=== PATIENT | female | born 1990 | race Caucasian/White ===

== ENCOUNTER 2019-12-07 13:41 | Emergency (ER) | payer OTHER, SELFPAY ==
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
[2019-12-07 13:58] VITALS: BP 128/75; PULSE 113; RESP 16; TEMP 37.4; O2SAT 95
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
== END 2019-12-07 14:45 | disposition home or self-care (01) ==
PROVIDERS: Emergency Provider Nurse Practitioner Family
DX: S53.401A Unspecified sprain of right elbow, initial encounter (principal); Y04.2XXA Assault by strike against or bumped into by another person, initial encounter
CPT/HCPCS: 73080; 99213; G0463

== ENCOUNTER 2020-08-30 11:47 | Emergency (ER) | payer OTHER, SELFPAY ==
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
[2020-08-30 11:48] VITALS: BP 117/59; PULSE 69; RESP 16; TEMP 36.2; O2SAT 100
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
== END 2020-08-30 13:47 | disposition home or self-care (01) ==
PROVIDERS: Emergency Provider Emergency Medicine; PCP Family Medicine
DX: S53.402A Unspecified sprain of left elbow, initial encounter (principal); V49.9XXA Car occupant (driver) (passenger) injured in unspecified traffic accident, initial encounter
CPT/HCPCS: 73080; 99283

== ENCOUNTER 2020-09-09 00:19 | Emergency (ER) | payer OTHER, SELFPAY ==
--- NOTE | ~2020-09-09 | CT_ITS ---
EXAMINATION: CT brain wo con EXAM DATE: 09/09/2020 02:57 INDICATION: Seizure and dizziness. TECHNIQUE: Spiral CT of the head was performed without contrast. Axial, coronal and sagittal images were reviewed. The dose-length product (DLP) for this examination was 605.33 mGy-cm. The exposure w as tailored according to patient size, and iterative reconstruction (ASIR) was used as additional dos e reduction technique. Comparison is made to prior examination from 05/12/2017. FINDINGS: There is no acute intraparenchymal hemorrhage. No evidence of intraparenchymal brain mass lesion. No evidence of acute infarction. There is no mass effect or midline shift. The ventricles are normal in size. There are no extra-axial collections. There are no acute calvarial fractures. T he orbits are unremarkable. Soft tissue is unremarkable. The visualized sinuses and mastoid air colt ls are well aerated. IMPRESSION: 1. Normal head CT examination. Reviewed, dictated and finalized at location A. MOBILE BODY REPAIRER
[2020-09-09 00:21] VITALS: BP 146/74; PULSE 111; RESP 16; TEMP 36.9; O2SAT 100
[2020-09-09 01:12] LABS: Basophils Percent Auto 0.3 % (0.2-1.2); Eosinophils Absolute Auto 0.2 K/mm3 (0-0.3); Eosinophils Percent Auto 1.5 % (0-4.4); Hematocrit 34.5 % (37.0-47.0); Hemoglobin 10.8 g/dL (12.0-15.0); Immature Granulocyte Absolute 0.04 K/mm3 (0.00-0.031); Immature Granulocyte Percent A 0.3 % (0-0.5); Lymphocytes Absolute Auto 2.82 K/mm3 (0.9-3.2); Lymphocytes Percent Auto 20.3 % (18.3-44.2); Mean Corpuscular HGB Conc 31.3 g/dl (32-36); Mean Corpuscular Hemoglobin 24.7 pg (26-34); Mean Corpuscular Volume 78.9 fl (80-100); Mean Platelet Volume 9.9 fl (7.4-10.4); Monocytes Absolute Auto 0.5 K/mm3 (0.1-0.6); Monocytes Percent Auto 3.7 % (2.6-8.5); Neutrophils Absolute Auto 10.3 K/mm3 (1.3-6.7); Neutrophils Percent Auto 73.9 % (45.5-73.1); Platelet Count Result 256 k/mm3 (150-375); Red Blood Count 4.37 M/mm3 (4.2-5.4); White Blood Count 13.9 K/mm3 (4.5-10.0)
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
[2020-09-09 01:30] VITALS: BP 114/71; PULSE 97; RESP 15; O2SAT 98
[2020-09-09 01:31] LABS: Ethanol < 10 mg/dL (<10)
[2020-09-09 01:33] LABS: Alanine Aminotransferase 18 U/L (4-35); Albumin Level 4.3 g/dL (3.5-5.1); Alkaline Phosphatase 77 U/L (38-126); Anion Gap 10 mmol/L (8-16); Aspartate Amino Transferase 24 U/L (14-36); Bilirubin,Total 0.2 mg/dL (0.2-1.3); Blood Urea Nitrogen 7 mg/dL (7-17); Calcium 9.1 mg/dL (8.4-10.2); Carbon Dioxide 25 mmol/L (22-30); Chloride 101 mmol/L (98-107); Estimated CRCL calculation 113 ml/min; Estimated Glomerular Filt Rate > 60; Glucose 154 mg/dL (65-105); Potassium 3.3 mmol/L (3.4-5.0); Sodium 136 mmol/L (137-145)
[2020-09-09 02:09] LABS: Add Urine Microscopic? YES; Appearance Urine Clear (Clear); Bilirubin Urine Negative (Negative); Blood Urine 3+ (Negative); Color Urine Yellow (Yellow); Glucose Urine UA Negative (Negative); Ketones Urine Negative (Negative); Leukocyte Esterase Ur Negative LEU/UL (Negative); Mucus Urine Rare /lpf; Nitrate Urine Negative (Negative); Protein Urine Negative (Negative); Specific Grav Ur 1.011 (1.001-1.035); Squamous Epithelial Cell Urine Occasional /hpf (Few); Urobilinogen Urine Negative mg/dL (<2.0)
[2020-09-09 02:38] LABS: Amphetamine Screen Urine Negative (Negative); Barbiturate Screen Urine Negative (Negative); Benzodiazepines Screen Urine Negative (Negative); Cannabinoid Screen Urine Negative (Negative); Cocaine Screen Urine Negative (Negative); Methadone Screen Urine Negative (Negative); Opiate Screen Urine Negative (Negative); Phencyclidine Screen Urine Negative (Negative)
[2020-09-09 03:00] VITALS: BP 111/71; PULSE 90; RESP 15; O2SAT 99
[2020-09-09 03:29] LABS: Glucose Point of Care 93 (65-105)
[2020-09-09] MEDS: levETIRAcetam 1000MG/NACL100ML 1,000 MG/100 ML BAG 400 MG IVPB (03:51)
[2020-09-09 04:20] VITALS: BP 111/65; PULSE 86; RESP 16; O2SAT 99
== END 2020-09-09 04:25 | disposition home or self-care (01) ==
PROVIDERS: Emergency Provider Emergency Medicine; PCP Family Medicine
DX: R56.9 Unspecified convulsions (principal); Z87.891 Personal history of nicotine dependence
CPT/HCPCS: 36415; 70450; 80053; 80307; 81001; 85025; 96365; 99284; J1953

== ENCOUNTER 2020-10-04 14:03 | Outpatient (CLI) | payer OTHER, SELFPAY ==
--- NOTE | ~2020-10-04 | MR_ITS ---
EXAMINATION: MR brain/brain stem wo con EXAM DATE: 10/04/2020 15:14 INDICATION: Intractable seizures. TECHNIQUE: Magnetic resonance imaging (MRI) of the brain/brain stem obtained without contrast. Georgina al T1, axial diffusion, gradient echo (T2*), T1, T2, FLAIR sequences obtained. Seizure protocol was u tilized including high-resolution coronal images through the hippocampi. Correlation is made to [facility] CT 09/09/2020. FINDINGS: The hippocampi are symmetric and are without signal abnormality identified. There are no g ray matter heterotopias identified or evidence of cortical dysplasia. There are no areas of restricte d diffusion to suggest acute infarction. There is no acute hemorrhage seen on the T2*, a hemosiderin sensitive sequence. No intraparenchymal brain mass. The ventricles are normal in size. There are n o extra-axial collections. Flow voids are seen in the cerebral arteries on the T2-weighted sequences consistent with their expected patency. The orbits are unremarkable. Soft tissue is unremarkable. IMPRESSION: 1. Normal brain MRI examination. Reviewed, dictated and finalized at location A. UP / OPERATOR
== END 2020-10-04 14:04 | disposition home or self-care (01) ==
PROVIDERS: PCP Family Medicine; Visit Provider Psychiatry & Neurology Neurology
DX: G40.211 Localization-related (focal) (partial) symptomatic epilepsy and epileptic syndromes with complex partial seizures, intractable, with status epilepticus (principal)
CPT/HCPCS: 70551

== ENCOUNTER 2020-10-15 10:55 | Outpatient (CLI) | payer OTHER, SELFPAY ==
--- NOTE | 2020-10-16 11:49 | WPDNEUROLOGY ---
Neurology EEG Report General Information Date of Study: 10/15/20 TEST eeg DIAGNOSIS Seizure disorder CONDITION OF RECORDING awake drowsy and sleep EEG NUMBER [id number] CLINICAL HISTORY Patient reported for the last 3 years she has been experiencing seizures but about 2 weeks ago she had a severe tonic clonic seizure. EEG DESCRIPTION basic resting occipital frequency consists of large amount of low-voltage beta activity during drowsiness. Bilateral symmetrical sleep spindles are seen during sleep. Hyperventilation not done. Photic stimulation produced normal drive. Non paroxysmal. Nonfocal. Nonlateralizing. IMPRESSION No significant abnormalities noted
== END 2020-10-15 10:56 | disposition home or self-care (01) ==
PROVIDERS: PCP Family Medicine; Visit Provider Psychiatry & Neurology Neurology
DX: G40.211 Localization-related (focal) (partial) symptomatic epilepsy and epileptic syndromes with complex partial seizures, intractable, with status epilepticus (principal)
CPT/HCPCS: 95816

== ENCOUNTER 2020-11-20 15:36 | Emergency (ER) | payer OTHER, SELFPAY ==
[2020-11-20] VITALS (15 sets, daily range): BP systolic 109–136; BP diastolic 66–76; PULSE 77–118; RESP 11–21; TEMP 36.3; O2SAT 95–100
[2020-11-20 16:15] LABS: Basophils Percent Auto 0.5 % (0.2-1.2); Eosinophils Absolute Auto 0.2 K/mm3 (0-0.3); Eosinophils Percent Auto 2.8 % (0-4.4); Hematocrit 36.5 % (37.0-47.0); Hemoglobin 11.6 g/dL (12.0-15.0); Immature Granulocyte Absolute 0.03 K/mm3 (0.00-0.031); Immature Granulocyte Percent A 0.4 % (0-0.5); Lymphocytes Absolute Auto 2.75 K/mm3 (0.9-3.2); Lymphocytes Percent Auto 32.1 % (18.3-44.2); Mean Corpuscular HGB Conc 31.8 g/dl (32-36); Mean Corpuscular Hemoglobin 24.7 pg (26-34); Mean Corpuscular Volume 77.7 fl (80-100); Mean Platelet Volume 9.8 fl (7.4-10.4); Monocytes Absolute Auto 0.5 K/mm3 (0.1-0.6); Monocytes Percent Auto 6.1 % (2.6-8.5); Neutrophils Percent Auto 58.1 % (45.5-73.1); Platelet Count Result 245 k/mm3 (150-375); Red Cell Distribution Width 15.2 % (11.5-14.5); White Blood Count 8.6 K/mm3 (4.5-10.0)
[2020-11-20 16:30] LABS: Alanine Aminotransferase 16 U/L (4-35); Albumin Level 4.6 g/dL (3.5-5.1); Alkaline Phosphatase 78 U/L (38-126); Anion Gap 7 mmol/L (8-16); Aspartate Amino Transferase 22 U/L (14-36); Bilirubin,Total 0.1 mg/dL (0.2-1.3); Blood Urea Nitrogen 7 mg/dL (7-17); Calcium 9.1 mg/dL (8.4-10.2); Carbon Dioxide 26 mmol/L (22-30); Chloride 104 mmol/L (98-107); Estimated CRCL calculation 99 ml/min; Estimated Glomerular Filt Rate > 60; Glucose 99 mg/dL (65-105); Potassium 3.6 mmol/L (3.4-5.0); Sodium 137 mmol/L (137-145)
[2020-11-20 16:30] LABS: Add Urine Microscopic? NO; Appearance Urine Clear (Clear); Bilirubin Urine Negative (Negative); Blood Urine Negative (Negative); Color Urine Colorless (Yellow); Glucose Urine UA Negative (Negative); Ketones Urine Negative (Negative); Leukocyte Esterase Ur Negative LEU/UL (Negative); Nitrate Urine Negative (Negative); Protein Urine Negative (Negative); Urobilinogen Urine Negative mg/dL (<2.0)
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
[2020-11-20 16:39] LABS: Specific Grav Ur 1.001 (1.001-1.035)
[2020-11-20] MEDS: SODIUM CHLORIDE 0.9% IV 1,000 ML 999 ML IV CONT (17:00)
[2020-11-23 06:06] LABS: Levetiracetam Keppra 39.4 mcg/mL (12.0-46.0)
== END 2020-11-20 18:53 | disposition home or self-care (01) ==
PROVIDERS: Emergency Medicine; Emergency Provider Emergency Medicine; PCP Family Medicine
DX: R56.9 Unspecified convulsions (principal)
CPT/HCPCS: 36415; 80053; 80177; 81003; 81025; 85025; 96360; 96361; 99283; J7030

== ENCOUNTER 2025-08-15 12:19 | Outpatient (CLI) | payer OTHER, SELFPAY ==
--- NOTE | ~2025-08-15 | XR_ITS ---
Examination: XR hand RT min 3V Clinical History: crushing injury of right wrist and hand Comparison: None Technique: 3 views right hand Findings/impression: 1. No fracture or dislocation right hand. Reviewed, dictated and finalized at location R. MILLER OPERATOR
--- OUTSIDE RECORDS SUMMARY | 2025-08-15 12:22 | XMS_ITS | Clinical Summary ---
Author Organization [facility] Address [address] [facility] [place] [address] Care Team Providers Care Fleet Manager Name Role Phone Juanpablo Bal MD Primary Care Provider [phone] Source Comments [facility],non-owned Affiliates and Associated Physician Practices is amultiple site organization consisting of ambulatory clinics and hospital sitesin [place], [place], [place] and [place]. This disclosure is being madepursuant to the Care Everywhere program and may not contain all information available regarding this patient. Last updated 18.[facility] [employer] [facility] Allergies No known active allergies Medications * Be aware that medications may not be up to date on this document. Alwaysverify current medications with the patient. lamoTRIgine (LaMICtal) 25 MG tablet Take 2 (two) tablets by mouth 2 times daily 09/11/2022 Active Active Problems Problem Noted Date Diagnosed Date Seizures 09/07/2022 Social History Tobacco Use Types Packs/Day Years Used Date Smoking Tobacco: Some Days Cigarettes Smokeless Tobacco: Never Tobacco Cessation:Ready to Q uit: No; Counseling Given: Yes Alcohol Use Standard Drinks/Week Comments Not Currently 0 (1 standard drink = 0.6 oz pur e alcohol) Overall Financial Resource Strain (CARDIA) Answe r Date Recorded How hard is it for you to pa y for the very basics like food, housing, medical care, and heating? Not hard at all 09/08/2022 [facility] [place] [facility] Occup[facility] ional [facility] - Occupational Stress Questionnaire Answer Date Recorded Do you feel stress - tense, restless, nervous, or anxious, or unable to sleep at night because your mind is troubled all the time - these days? Not at all 09/08/2022 Hunger Vital Sign Answer Date Recorded Within the past 12 months, y ou worried that your food would run out before you got the money to buy more. Never true 09/08/19 23 Within the past 12 months, t he food you bought just didn't last and you didn't have money to get more. Never true 09/08/2022 PRAPARE - Transportation Answer Date Re corded In the past 12 months, has l ack of transportation kept you from medical appointments or from getting medications? No 08/17 In the past 12 months, has l ack of transportation kept you from meetings, work, or from getting things needed for daily living? No 09/08/2022 Housing Stability Vital Sign Answer Soham e Recorded In the last 12 months, was t here a time when you were not able to pay the mortgage or rent on time? No 09/08/2022 In the last 12 months, how many places have you lived? 1 09/08/2022 In the last 12 months, was t here a time when you did not have a steady place to sleep or slept in a long term (including now)? No 09/08/2022 Comments Unknown Sex and Gender Information Value Date Recorded Sex Assigned at Not on file Legal Sex Female 5:36 AM CLIENT SERVICE ADMINISTRATOR Gender Identity Not on file Sexual Orientation Not on file Last Filed Vital Signs Vital Sign Reading Time Taken Comments Blood Pressure 111/68 09/11/2022 12:02 PM CLIENT SERVICE ADMINISTRATOR Pulse 78 09/11/2022 12:02 PM CLIENT SERVICE ADMINISTRATOR Temperature 36.7 C (98 F) 09/11/2022 12:02 PM CLIENT SERVICE ADMINISTRATOR Respiratory Rate 18 09/11/2022 12:02 PM CLIENT SERVICE ADMINISTRATOR Oxygen Saturation 100% 09/11/2022 12:02 PM CLIENT SERVICE ADMINISTRATOR Inhaled Oxygen Concentration - - Weight 65.8 kg (145 lb) 09/08/2022 2:36 PM CLIENT SERVICE ADMINISTRATOR Height 160 cm (5' 3) 09/08/2022 2:36 PM CLIENT SERVICE ADMINISTRATOR Body Mass Index 25.69 09/08/2022 2:36 PM CLIENT SERVICE ADMINISTRATOR Plan of Treatment Health Maintenance Due Date Last Done Comments HIV SCREENING 12/27/2007 HEPATITIS C SCREENING 12/22/2010 DTAP/TDAP/TD VACCINES (1 - Tdap) 12/27/2011 HEPATITIS B VACCINE (1 of 3 - 19+ 3-dose series) 12/27/2011 PNEUMOCOCCAL VACCINE (1 of 2 - PCV) 12/27/2011 PAP SMEAR 2013 HPV VACCINE (1 - 3-dose SCDM series) 12/27/2019 DEPRESSION SCREENING 08/16/2024 COVID-19 VACCINE (2 - 2024-2 6 season) 2025 07/30/2021 INFLUENZA VACCINE (#1) 2025 , 09/03/2020, 05/29/2016 ZOSTER VACCINE (1 of 2) 2042 HIB VACCINE Aged Out No longer eligi ble based on patient's age to complete this topic MENINGOCOCCAL (Group B) VACCINE SHARED DECISION-MAKING Aged Out No longer eligible based on patient's age to complete this topic MENINGOCOCCAL GROUPS A/C/Y/W VACCINE Aged Out No longer eligible b ased on patient's age to complete this topic Insurance [facility] Advance Directives * Full Code (Latest Code Status on File) Date Activated Date Inactivated Comments 09/07/2022 10:13 AM 09/11/2022 4:31 PM Care Teams Fleet Manager Relationship Specialty Start Date End Date Juanpablo Bal MD [address] [place], [place] [address] [place] [address] PCP - General 06/20/18
--- OUTSIDE RECORDS SUMMARY | 2025-08-15 12:22 | XMS_ITS | Clinical Summary ---
Author Organization [facility] Address [address] [place] [address] Phone Care Team Providers Care Electrostatic Powder Coating Technician Name Role Phone Juanpablo Bal MD Primary Care Provider [phone] Nubia Boyer APRN, [facility] [employer] [employer] Unavailable [phone] Allergies No known active allergies Medications lamoTRIgine (LaMICtal ODT) 25 MG TABLET DISPERSIBLEIndi cations:Seizure s Take 2 Tablets by mouth in the morning and at bedtime. 120 Tablet 09/24/2022 Active Active Problems No known active problems Family History Medical History Relation Name Comments Heart Disease Brother Seizures Maternal Grandfather Relation Name Status Comments Brother Maternal Grandfather Alive Mother Alive Social History Tobacco Use Types Packs/Day Years Used Date Smoking Tobacco: Every Day Cigarettes Smokeless Tobacco: Never Tobacco Cessation:Ready to Q uit: Not Asked; Counseling Given: Not Answered Alcohol Use Standard Drinks/Week Comments Never 0 (1 standard drink = 0.6 oz pur e alcohol) Comments Unknown Sex and Gender Information Value Date Recorded Sex Assigned at Not on file Legal Sex Female 11:56 PM CDT Gender Identity Not on file Sexual Orientation Not on file Last Filed Vital Signs Vital Sign Reading Time Taken Comments Blood Pressure 118/72 09/24/2022 10:54 AM PROVER Pulse 89 09/24/2022 10:54 AM PROVER Temperature 35.7 C (96.3 F) 09/24/2022 10:54 AM PROVER Respiratory Rate 14 09/24/2022 10:54 AM PROVER Oxygen Saturation 98% 09/24/2022 10:54 AM PROVER Inhaled Oxygen Concentration - - Weight 71.2 kg (157 lb) 09/24/2022 10:54 AM PROVER Height 160 cm (5' 3) 09/24/2022 10:54 AM PROVER Body Mass Index 27.81 09/24/2022 10:54 AM PROVER Plan of Treatment Health Maintenance Due Date Last Done Comments Hepatitis C Virus (HCV) Screening 1992 TdaP Immunization 1992 Varicella Immunization (1 of 2 - 13+ 2-dose series) 2005 Hepatitis B Immunization (1 of 3 - 19+ 3-dose series) 12/27/2011 Pap Smear 2013 Cervical Cancer Screening (CCS) 2022 HPV/Cotest 2022 Influenza Immunization (#1) 04/16/202501/2021, 09/03/2020, 05/29/2016 SARS-COV-2 Immunization (2 - 2024- season) 2025 07/30/2021 Respiratory Syncytial Virus (RSV) Immunization (Adult) (1 - 1-dose 75+ series) 12/27/2067 Human Papillomavirus (HPV) Immunization (No Doses Required) Completed Meningococcal Immunization (ACWY) Aged Out No longer eligible b ased on patient's age to complete this topic Pneumococcal Immunization Combined Aged Out No longer eligible b ased on patient's age to complete this topic Rotavirus Immunization Aged Out No lo nger eligible based on patient's age to complete this [place] [address] MEDICAID [employer] Care Teams Electrostatic Powder Coating Technician Relationship Specialty Start Date End Date Juanpablo Bal MD [facility] [place] [address] PCP - General Cat Tender 05/21/21 Nubia Boyer APRN, [facility] [employer] [address] [place] [address] Nurse Practitioner Advanced Practice Nurse 08/13/22
== END 2025-08-15 12:20 | disposition home or self-care (01) ==
PROVIDERS: Visit Provider Pediatrics
DX: S67.41XA Crushing injury of right wrist and hand, initial encounter (principal); X58.XXXA Exposure to other specified factors, initial encounter
CPT/HCPCS: 73130